=== PATIENT | female | born 1950 | race Caucasian/White ===

== ENCOUNTER → 2016-08-18 19:50 | Emergency (ER) | payer OTHER ==
--- NOTE | ~2016-08-18 | CR172 ---
[facility] A Service of [facility] & [facility] RADIOLOGY TEXT RESULTS PATIENT: SHEFALI GARCIA LOCATION: CFTX : 54 UNIT #: [id number] AGE: [address]: Joyce Miller SEX: F ORDER DR: [id number] [facility] [address] [place], [place] [address] [id number] E MR#: [id number] #: [id number] NAME: SHEFALI GARCIA. : 1950 SEX: F STUDY DATE/TIME: 08/18/2016 19:15 UNIT: [facility] ROOM: STUDY DESCRIPTION: CR Knee 3 Views Lt Attending Physician: Joyce Miller P.A.-C. Ordering Physician: Joyce Miller P.A.-C. Primary Care Physician: Hodan Crockett M.D. MEDICAL IMAGING REPORT This report is preliminary unless electronic signature is present EXAM Left knee 3 views, 08/18/2016 HISTORY Left knee pain and swelling, twisted knee at 2:30 p.m. today. FINDINGS 3 views of the left knee demonstrate no fracture. There is degenerative change with small osteophytes along the posterior aspect of the patella. The bones are normally mineralized. There is a small knee joint effusion. IMPRESSION Small knee joint effusion. No evidence of fracture. Dictated by... Luke Olivo M.D. THIS IS AN ELECTRONICALLY VERIFIED REPORT Luke Olivo M.D. at 08/19/2016 7:30 AM KRT/cinthia TD: 08/18/2016 23:17 JOB #: [id number] MEDICAL IMAGING REPORT Page 1 of 1 COPY
[~2016-08-18 19:50] MED LIST: ACTIVELLA PO; ACTIVELLA1 TAB PO; ALLEGRA PO; AMOXICILLIN PO; ANTIVERT PO; ASPIRIN81 M1 PO; ASPIRIN81 MG PO; BACTRIM DS TABL1 TA1 PO; BENTYL20 MG PO; CLARITIN10 MG PO; COZAAR100 MG PO; CRESTOR PO; CRESTOR10 MG PO; DIFLUCAN PO; EFFIENT10 MG PO; FLEXERIL10 MG PO; GLUCOTROL PO; LOPRESSOR PO; NEXIUM PO; OMEGA 3-6-9 11200 MG PO; PHENERGAN W/CO120 ML PO; PHENERGAN25 MG PO; PROTONIX PO; VICODIN 5/1 TAB 5/50 PO; XANAX0.5 MG PO; ZITHROMAX PO; ZYRTEC10 M2 PO
== END | disposition home or self-care (01) ==
LOC: CFTX 19:50
DX: M25.462 Effusion, left knee (principal); I25.10 Atherosclerotic heart disease of native coronary artery without angina pectoris; E11.9 Type 2 diabetes mellitus without complications; I10 Essential (primary) hypertension; F41.9 Anxiety disorder, unspecified; F32.9 Major depressive disorder, single episode, unspecified; Z88.8 Allergy status to other drugs, medicaments and biological substances; Z87.891 Personal history of nicotine dependence
CPT/HCPCS: 29530; 73562; 99283